=== PATIENT | male | born 1965 | race Caucasian/White ===

== ENCOUNTER 2023-05-13 07:59 | Outpatient (CLI) | payer OTHER, SELFPAY ==
--- NOTE | ~2023-05-13 | US_ITS ---
EXAMINATION: US art doppler w press UE BI DATE: 05/14/2023 14:41 CDT INDICATION: Anesthesia of the skin TECHNIQUE: Segmental pressures and plethysmographic and Doppler waveforms of the upper extremity debra di were obtained. COMPARISON: None. FINDINGS: Right and left brachial artery pressures of 127 mm Hg and 136 mm Hg, respectively, are concordant (no rmal difference <= 30 mmHg). The right finger:brachial systolic pressure ratio is 1.45 (normal > 0.8) . Segmental pressure gradients are normal. Arterial Doppler waveforms are biphasic (normal upstroke < 0.2 s). The left finger:brachial systolic pressure ratio is 1.21. Segmental pressure gradients are normal. Ar terial Doppler waveforms are biphasic. IMPRESSION: 1. Normal upper extremity arterial Doppler. Reviewed, dictated and finalized at location A.
--- NOTE | ~2023-05-13 | US_ITS ---
EXAMINATION: US venous doppler UE DATE: 05/13/2023 09:11 INDICATION: Anesthesia of the skin TECHNIQUE: Alvarez scale images with and without compression and Doppler images of the right and left up per extremity veins were obtained. COMPARISON: None. FINDINGS: The right and left internal jugular vein, subclavian vein, axillary vein, brachial veins, basilic vei n, cephalic vein, radial vein, and ulnar vein are patent. IMPRESSION: 1. Patent bilateral upper extremity veins. No evidence of deep venous thrombosis. Reviewed, dictated and finalized at location [] IMPRESSION: 1. Patent bilateral upper extremity veins. No evidence of deep venous thrombosi s.
== END 2023-05-13 08:00 | disposition home or self-care (01) ==
PROVIDERS: PCP Family Medicine; Visit Provider Nurse Practitioner Family
DX: R20.0 Anesthesia of skin (principal); R20.2 Paresthesia of skin; R09.89 Other specified symptoms and signs involving the circulatory and respiratory systems
CPT/HCPCS: 93923; 93970

== ENCOUNTER 2024-01-11 09:01 | Outpatient (CLI) | payer OTHER, SELFPAY ==
--- NOTE | ~2024-01-11 | XR_ITS ---
Cervical Spine: AP, lateral, open-mouth views Clinical History: Pain Findings: The normal lordotic curve is maintained. The vertebral bodies and posterior elements appea r intact. There is mild degenerative disc changes C5-C6 and C6-C7. Pre-vertebral soft tissues are unr emarkable. Impression: Degenerative disc change, as above. Reviewed, dictated and finalized at location . [employer] Impression: Degenerative disc change, as above.
== END 2024-01-11 09:02 ==
PROVIDERS: PCP Physician Assistant Medical; Visit Provider Physician Assistant Medical
DX: M54.2 Cervicalgia (principal); G89.29 Other chronic pain
CPT/HCPCS: 72040